=== PATIENT | male | born 1990 | race Caucasian/White ===

== ENCOUNTER 2017-06-19 07:24 | Day surgery (SDC) | payer BC, OTHER ==
[~2017-06-19] VITALS: Ht 188 cm; Wt 98.0 kg
== END 2017-06-19 23:09 | disposition home or self-care (01) ==
LOC: ORSCMMR 07:24 → ORD 08:30 → ORSCMMR 08:30
PROVIDERS: Internal Medicine Gastroenterology
PROC: 0DBP8ZX Excision of Rectum, Via Natural or Artificial Opening Endoscopic, Diagnostic (ICD-10-PCS; principal; 2017-06-19 08:30)
PROC: 0DBN8ZX Excision of Sigmoid Colon, Via Natural or Artificial Opening Endoscopic, Diagnostic (ICD-10-PCS; principal; 2017-06-19 08:30)
PROC: 0DBK8ZX Excision of Ascending Colon, Via Natural or Artificial Opening Endoscopic, Diagnostic (ICD-10-PCS; principal; 2017-06-19 08:30)
PROC: 0DBB8ZX Excision of Ileum, Via Natural or Artificial Opening Endoscopic, Diagnostic (ICD-10-PCS; principal; 2017-06-19 08:30)
PROC: 0DBL8ZX Excision of Transverse Colon, Via Natural or Artificial Opening Endoscopic, Diagnostic (ICD-10-PCS; principal; 2017-06-19 08:30)
DX: K62.5 Hemorrhage of anus and rectum (principal); K62.1 Rectal polyp; E78.00 Pure hypercholesterolemia, unspecified
CPT/HCPCS: 88305; J7120